=== PATIENT | male | born 1985 | race Hispanic/Latino ===

== ENCOUNTER 2018-01-31 21:55 | Emergency (ER) | payer OTHER ==
[2018-01-31 22:25] VITALS: BP 146/80; PULSE 64; RESP 18; TEMP 98.4; O2SAT 99
--- NOTE | 2018-01-31 22:51 | ED PDOC ---
HPI: Dental Pain/Injury Time Seen by Provider: 01/31/18 22:27 Chief Complaint (Nursing): Dental Pain History Per: Patient History/Exam Limitations: no limitations Onset/Duration Of Symptoms: Mins Current Symptoms Are (Timing): Still Present Additional Complaint(s): Hx of thalassemia minor presenting with bleeding bum, states he had all 4 teeth extracted today and lower L gum is still bleeding. Denies lightheadedness, dizziness, faintness, or any other symptoms. Came to the ER to check if "everything was okay." Past Medical History Reviewed: Historical Data, Nursing Documentation, Vital Signs Vital Signs: Last Vital Signs Temp 98.4 F 01/31/18 22:21 Pulse 64 01/31/18 22:21 Resp 18 01/31/18 22:21 BP 146/80 01/31/18 22:21 Pulse Ox 99 01/31/18 22:21 - Medical History PMH: No Chronic Diseases - Family History Family History: States: No Known Family Hx - Allergies Allergies/Adverse Reactions: Allergies Allergy/AdvReac Type Severity Reaction Status Date / Time No Known Allergies Allergy Verified 01/31/18 22:21 Review of Systems ROS Statement: Except As Marked, All Systems Reviewed And Found Negative ENT: Positive for: Other (Gum Bleeding) Physical Exam - Reviewed Nursing Documentation Reviewed: Yes Vital Signs Reviewed: Yes - Physical Exam Appears: Positive for: Well, Non-toxic, No Acute Distress Head Exam: Positive for: ATRAUMATIC, NORMAL INSPECTION, NORMOCEPHALIC Skin: Positive for: Normal Color, Warm, DRY ENT: Positive for: Other (L lower molar gum status post extraction, minimal venous oozing) - ECG O2 Sat by Pulse Oximetry: 99 Pulse Ox Interpretation: Normal Medical Decision Making Medical Decision Making: Patient with minimal venous bleeding status post molar extraction --Vitals stable, patient very well appearing --Patient not putting adequate compression --Recommended compression for longer period of time --Advised patient to call dentist tomorrow --Return precautions discussed: dizziness, lightheadedness, feeling faint/ passing out, or any other concerning symptoms Disposition - Clinical Impression Clinical Impression: Bleeding gums - Disposition Referrals: Andrea Marquis [Outside] Disposition Time: 22:30 Condition: GOOD Instructions: Bleeding Gums Forms: [employer] (Turkmen)
== END 2018-01-31 22:47 | disposition home or self-care (01) ==
LOC: H.ER 21:55
DX: K06.8 Other specified disorders of gingiva and edentulous alveolar ridge (principal); D56.3 Thalassemia minor